=== PATIENT | female | born 1965 | race Caucasian/White ===

== ENCOUNTER 2017-12-14 16:01 | Emergency (ER) | payer OTHER ==
[~2017-12-14] VITALS: Ht 160 cm; Wt 81.6 kg
[~2017-12-14 16:01] MED LIST: Z.0.NO CURRENT MEDS
[2017-12-14 16:21] VITALS: BP 192/100; PULSE 71; RESP 16; TEMP 97.8; O2SAT 96
[2017-12-14 17:21] VITALS: BP 143/76
[2017-12-14] MEDS ORDERED: BENZ100 PO (17:35)
--- NOTE | 2017-12-14 17:36 | PD ---
HPI Chief Complaint: ENT Complaint Time Seen by Provider: 17:15 Travel History International Travel<30 days: No Contact w/Intl Traveler<30days: No Traveled to known affect area: No History of Present Illness HPI Is a 52-year-old female here with nasal congestion, cough, sore throat, subjective fever times one day. Symptom severity is mild to moderate. No aggravating or alleviating factors. No sick contacts or foreign travel. PFSH Past Medical History Medical History: Denies Significant Hx Cardiovascular Problems: No ?: Not LMP: 2 months ago Menopausal: Yes Past Surgical History Surgical History: No Previous Surgery Section: Yes Social History Alcohol Use: No Tobacco Use: No Substance Use: No Allergies-Medications (Allergen,Severity, Reaction): Coded Allergies: No Known Allergies (Unverified Adverse Reaction, Unknown, 12/14/17) Reported Meds & Prescriptions Reported Meds & Active Scripts Active No Active Prescriptions or Reported Medications Review of Systems Except as stated in HPI: all other systems reviewed are Neg General / Constitutional: Positive: Fever Eyes: No: Visual changes HENT: Positive: Sore Throat, Congestion Cardiovascular: No: Chest Pain or Discomfort Respiratory: Positive: Cough Gastrointestinal: No: Abdominal Pain Genitourinary: No: Dysuria Musculoskeletal: Positive: Myalgias, No: Pain Skin: No Rash Physical Exam Narrative GENERAL: Alert and well-appearing 52-year-old female SKIN: Warm and dry. No rash HEAD: Normocephalic. EYES: No injection or drainage. Ears/nose/throat: No TM erythema. Clear nasal discharge. Mild pharyngeal erythema without tonsillar hypertrophy or exudate. NECK: Supple. No meningismus CARDIOVASCULAR: Regular rate and rhythm RESPIRATORY: Breath sounds equal bilaterally. No accessory muscle use. GASTROINTESTINAL: Abdomen soft, non-tender, nondistended. MUSCULOSKELETAL: No cyanosis, or edema. BACK: No CVA tenderness. Data Data Last Documented VS Vital Signs Date Time Temp Pulse Resp B/P (MAP) Pulse Ox O2 Delivery O2 Flow Rate FiO2 12/14/17 17:21 143/76 (98) 18 16:21 97.8 71 16 96 MDM Medical Decision Making Medical Screen Exam Complete: Yes Emergency Medical Condition: Yes Differential Diagnosis Influenza, bronchitis, pneumonia, URI Narrative Course This is a 52-year-old female here with mild flulike illness. She is nontoxic appearing. Her vital signs are stable. Her blood pressure in triage was noted to be elevated. On recheck it was 144/89. I suspect that this was an incorrect blood pressure entered by staff. She has no history of hypertension. Treatment of influenza was discussed with patient. She reports that she would not like to be treated with Tamiflu. Symptomatic treatment discussed. Diagnosis Primary Impression: Influenza-like illness Referrals: Primary Care Physician Departure Forms: Tests/Procedures, Work Release Enter return to work date: Dec 18, 2017 Additional Instructions: Tylenol and ibuprofen for pain and fever. Drink plenty of fluids. Rest. Scripts Benzonatate (Tessalon Perles) 100 Mg Cap 200 MG PO TID Y for COUGH, #14 CAP 0 Refills Prov: Suzanne Pacheco 12/14/17 Disposition: 01 DISCHARGE HOME Condition: Stable Suzanne Pacheco Dec 14, 2017 17:36
== END 2017-12-14 17:42 | disposition home or self-care (01) ==
LOC: PHEFT 16:01
DX: J02.9 Acute pharyngitis, unspecified (principal); R09.81 Nasal congestion; R05 Cough; M79.1 Myalgia
CPT/HCPCS: 99283